=== PATIENT | female | born 1970 | race Caucasian/White ===

== ENCOUNTER 2016-10-19 10:23 | Day surgery (SDC) | payer OTHER ==
[2016-10-19] VITALS (7 sets, daily range): BP systolic 108–128; BP diastolic 56–85; PULSE 80–92; RESP 16; O2SAT 88–95
[~2016-10-19] VITALS: Ht 165.1 cm; Wt 115.0 kg
[~2016-10-19 10:23] MED LIST: 0.9% Sodium Chloride 1,000 ML IV SCH; CRB200T PO; CYCL5TAB PO; DULO30CA50 PO; ERGO500050 PO; HYDR25TA4 PO; LEVO88CA2 PO; LISI-567 PO; LOSA50TA37 PO; MELO-253 PO; NITR0.4T SL; OMEP20CA11 PO; PRAV20TA2 PO; Sodium Chloride LOK Flush 10 mL Syringe IV PRN; VERA120T84 PO; fentaNYL-PF 50 mCg/mL 2 mL Inj IVPUSH PRN
--- NOTE | 2016-10-19 13:54 | ENDO ---
[address] [address] ENDOSCOPY PROCEDURE PATIENT: DONNIE LAY : 1970 MR#: [id number] ADMIT: 10/19/2016 JOB ID: [id number] PROCEDURE: Esophagogastroduodenoscopy. INDICATION: Gastroesophageal reflux. The patient with a history of history of [place] esophagus without dysplasia. ANESTHESIA: Patient's ASA classification is two. Mallampati score is two. MEDICATIONS: Versed 6 mg, fentanyl 100 mcg. INSTRUMENT USED: [id number]. PROCEDURE: After informed consent was obtained, the patient was brought into the GI suite, where she was placed on oxygen via nasal cannula and monitored with continuous pulse oximeter, telemetry, and blood pressure monitoring. A time-out was performed, then she was placed in the left lateral decubitus position and medications were administered for sedation. A bite block was placed. The EGD scope was inserted through the bite block and advanced under direct visualization to the second portion of the duodenum without difficulty. FINDINGS: 1. Normal-appearing duodenal bulb, first and second portion. 2. Normal-appearing pylorus, antrum, and gastric body. 3. Retroflexed views in the gastric body revealed a normal-appearing cardia and fundus. 4. Multiple random biopsies were obtained throughout the antrum and body of the stomach. 5. The gastroesophageal junction was regular at 37 cm. 6. Normal-appearing esophagus. IMPRESSION: Normal esophagogastroduodenoscopy exam to the second portion of the duodenum. RECOMMENDATIONS: 1. Await biopsy results. 2. Continue PPI. 3. Follow up in GI Clinic. COMPLICATIONS: None. ESTIMATED BLOOD LOSS: Less than 5 mL.
--- NOTE | 2016-10-22 14:15 | PATH ---
SURGICAL PATHOLOGY Attending Physician:Gabby Marquez CASE STATUS: Signed Out PATIENT NAME: DONNIE LAY PID: [id number] : 1970 DATE COLLECTED:10/19/2016 21:01 SPECIMEN: Gastric, Biopsy CLINICAL HISTORY: 1). GASTRIC BIOPSY FINAL DIAGNOSIS: 1.GASTRIC BIOPSY: MINIMAL CHRONIC GASTRITIS INVOLVING ANTRAL AND FUNDIC MUCOSA. Negative for evidence of Helicobacter. Negative for intestinal metaplasia. Negative for dysplasia and malignancy. ICD10 CODE K29.70 GROSS DESCRIPTION: Received in formalin, labeled with the patient' s name and "gastric biopsy", is one fragment of sapp, soft tissue measuring 0.3 x 0.2 x 0.2 cm. The fragment is totally submitted in one cassette. ([id number]) MICRO DESCRIPTION: See diagnosis. ICD-9 CODES: CPT CODES: 1: 55502 Electronically Signed Out Landry Ohara MD [facility] Pathology [facility] [address], [place] [address] Technical component performed at [facility], [address], [place], [address]
== END 2016-10-19 23:59 | disposition home or self-care (01) ==
LOC: END 10:23
PROVIDERS: ATTEND Internal Medicine Gastroenterology
DX: K29.50 Unspecified chronic gastritis without bleeding (principal); K22.70 Barrett's esophagus without dysplasia; K21.9 Gastro-esophageal reflux disease without esophagitis; K59.00 Constipation, unspecified; I10 Essential (primary) hypertension; E03.9 Hypothyroidism, unspecified; E11.9 Type 2 diabetes mellitus without complications; E66.9 Obesity, unspecified; Z68.41 Body mass index [BMI] 40.0-44.9, adult; Z86.711 Personal history of pulmonary embolism
CPT/HCPCS: 43239; 88305; G0500; J2250; J3010; J7030